=== PATIENT | female | born 2000 | race Two or more races ===

== ENCOUNTER 2021-01-14 06:25 | Emergency (ER) | payer MEDICAID, OTHER, SELFPAY ==
[~2021-01-14] VITALS: Ht 149.9 cm; Wt 65.7 kg
[2021-01-14] MEDS ORDERED: ONDANSETRON 2MG/ML, 2ML IVPush ONE (07:00)
[2021-01-14] MEDS ORDERED: MORPHINE SULFATE 4 MG/ML, 1ML IVPush PRN (07:00)
[2021-01-14] MEDS ORDERED: SODIUM CHLORIDE 0.9% 1,000ML IVBOLUS ONE (07:00)
--- NOTE | 2021-01-14 07:12 | NUR ---
LOWER ABD PAIN GOING AROUND TO BACK X 3 DAYS. PT STATES PAIN IN BILATERAL LOWER ABD RADIATES TO BILATERAL FLANKS. PT STATES SHE HAS HAD N/V/D. DENIES SYMPTOMS. DR. FORDE EVALUATED AT BEDSIDE. PT UP TO BATHROOM WITH STEADY GAIT. VSS. OSORIO.
[2021-01-14] MEDS ORDERED: MORPHINE SULFATE 4 MG/ML, 1ML ONE (07:16)
[2021-01-14] MEDS ORDERED: ONDANSETRON 2MG/ML, 2ML ONE (07:16)
[2021-01-14 07:20] LABS: MICROSCOPIC INDICATED
[2021-01-14 07:24] LABS: ALANINE AMINOTRANSFERASE 31 U/L (12-78); ALBUMIN 4.8 g/dL (3.4-5.0); ANION GAP 6 mmol/L (5-15); CALCIUM 9.1 mg/dL (8.5-10.1); CHLORIDE 107 mmol/L (98-107); CREATININE 0.88 mg/dL (0.55-1.02)
--- NOTE | 2021-01-14 07:24 | NUR ---
PT BACK TO BED. ATTACHED TO MONITORS. VSS. NADN. MEDICATED PER EMAR
[2021-01-14 07:27] LABS: ALKALINE PHOSPHATASE 83 U/L (45-117); BILIRUBIN,TOTAL 0.8 mg/dL (0.2-1.0); TOTAL PROTEIN 8.6 g/dL (6.4-8.2)
[2021-01-14 07:28] LABS: BASOPHILS % (AUTO) 0 % (0-1); EOSINOPHILS % (AUTO) 1 % (1-7); LYMPHOCYTES % (AUTO) 23 % (22-44); MEAN CORPUSCULAR HEMOGLOBIN 31.3 pg (27.0-34.8); MEAN CORPUSCULAR HGB CONC 34.2 g/dL (32.4-35.8); MEAN PLATELET VOLUME 9.6 fL (7.4-10.4); MONOCYTES % (AUTO) 9 % (2-9); NEUTROPHILS % (AUTO) 66 % (42-75); PLATELET COUNT 273 x10^3/uL (130-400); RED BLOOD COUNT 4.73 x10^6/uL (3.82-5.3); RED CELL DISTRIBUTION WIDTH 13.4 % (9.6-15.2)
[2021-01-14 07:36] LABS: MD NO
[2021-01-14] MEDS ORDERED: OMNIPAQUE 350 MG/ML, 100ML BOTTLE ONE (08:12)
--- NOTE | 2021-01-14 08:30 | NUR ---
PT BACK FROM CT, ATTACHED TO MONITORS.
[2021-01-14] MEDS ORDERED: KETOROLAC 30 MG/1 ML IVPush ONE (09:00)
[2021-01-14] MEDS ORDERED: KETOROLAC 30 MG/1 ML ONE (09:12)
[2021-01-14 09:16] VITALS: BP 111/64
== END 2021-01-14 09:21 | disposition home or self-care (01) ==
LOC: ED 07:46
DX: R10.11 Right upper quadrant pain (principal); R11.2 Nausea with vomiting, unspecified
CPT/HCPCS: 36415; 74177; 80053; 81001; 83690; 84703; 85025; 87086; 96374; 96375; 99285; J1885; J2270; J2405; J7030; Q9967

== ENCOUNTER 2021-02-05 12:36 | Emergency (ER) | payer SELFPAY ==
[~2021-02-05] VITALS: Ht 149.9 cm; Wt 65.7 kg
--- NOTE | 2021-02-05 13:00 | NUR ---
UA sample obtained and walked to lab. Small amount uop with cloudy and bloody uop present with sediment noted. Pt is currently on her period and was given extra jay soap wipes to ensure a clean catch sample was obtained.
--- NOTE | 2021-02-05 13:11 | NUR ---
MD completed exam and orders present.
[2021-02-05] MEDS ORDERED: ONDANSETRON 2MG/ML, 2ML IVPush ONE (13:30)
[2021-02-05] MEDS ORDERED: SODIUM CHLORIDE FLUSH 10ML SYR IVF ONE (13:30)
[2021-02-05] MEDS ORDERED: KETOROLAC 30 MG/1 ML IVPush ONE (13:30)
--- NOTE | 2021-02-05 13:43 | NUR ---
Report given to oncoming RN, Garima, at this time and care transferred.
[2021-02-05] MEDS ORDERED: KETOROLAC 30 MG/1 ML ONE (13:47)
[2021-02-05] MEDS ORDERED: ONDANSETRON 2MG/ML, 2ML ONE (13:47)
--- NOTE | 2021-02-05 13:50 | NUR ---
IV started and meds given as ordered.
--- NOTE | 2021-02-05 13:52 | NUR ---
ASSUMED PT CARE FROM ERWIN MOULTON AT THIS TIME. PT RESTING IN [place] AT THIS TIME, BRAYAN.
--- NOTE | 2021-02-05 14:05 | NUR ---
Straight cath for second UA sample attempted without uop present other than a couple of drops in catheter tubing only. Initial UA sample was less than 20mL an hour ago. MD notified and orders for NS 1 liter obtained while waiting to see if original sample results can be utilized without issue. Sterile technique used and pt tolerated well.
[2021-02-05 14:06] LABS: BASOPHILS % (AUTO) 0 % (0-1); EOSINOPHILS % (AUTO) 0 % (1-7); LYMPHOCYTES % (AUTO) 15 % (22-44); MEAN CORPUSCULAR HEMOGLOBIN 31.3 pg (27.0-34.8); MEAN CORPUSCULAR HGB CONC 34.5 g/dL (32.4-35.8); MEAN PLATELET VOLUME 9.3 fL (7.4-10.4); MONOCYTES % (AUTO) 7 % (2-9); NEUTROPHILS % (AUTO) 78 % (42-75); PLATELET COUNT 268 x10^3/uL (130-400); RED BLOOD COUNT 4.37 x10^6/uL (3.82-5.3); RED CELL DISTRIBUTION WIDTH 12.8 % (9.6-15.2)
[2021-02-05 14:07] LABS: MD NO
--- NOTE | 2021-02-05 14:16 | NUR ---
NS bolus started and running without issue. Primary RN notified of all tasks completed up to now.
[2021-02-05 14:18] LABS: ALBUMIN 4.3 g/dL (3.4-5.0); ANION GAP 8 mmol/L (5-15); CALCIUM 8.9 mg/dL (8.5-10.1); CHLORIDE 107 mmol/L (98-107)
[2021-02-05 14:25] LABS: ALANINE AMINOTRANSFERASE 30 U/L (12-78); ALKALINE PHOSPHATASE 62 U/L (45-117); BILIRUBIN,TOTAL 0.8 mg/dL (0.2-1.0); CREATININE 0.83 mg/dL (0.55-1.02); TOTAL PROTEIN 7.8 g/dL (6.4-8.2)
[2021-02-05] MEDS ORDERED: SODIUM CHLORIDE 0.9% 1,000ML IVBOLUS ONE (14:30)
[2021-02-05 14:35] LABS: MICROSCOPIC INDICATED
[2021-02-05 16:00] VITALS: BP 102/56
[2021-02-05] MEDS ORDERED: METOCLOPRAMIDE 5 MG/ML, 2ML ONE (16:02)
[2021-02-05] MEDS ORDERED: METOCLOPRAMIDE 5 MG/ML, 2ML IVPush ONE (16:30)
== END 2021-02-05 17:57 | disposition home or self-care (01) ==
LOC: ED 12:40
DX: N20.0 Calculus of kidney (principal); R11.2 Nausea with vomiting, unspecified; R10.9 Unspecified abdominal pain; J45.909 Unspecified asthma, uncomplicated
CPT/HCPCS: 36415; 74018; 76770; 80053; 81001; 84703; 85025; 87086; 96361; 96374; 96375; 99285; J1885; J2405; J2765; J7030